=== PATIENT | female | born 1985 | race Caucasian/White ===

== ENCOUNTER → 2021-12-06 13:14 | Outpatient (ROUT) | payer OTHER, SELFPAY ==
[2021-12-06 13:23] LABS: Semen 30 min. Liquification? Yes
[2021-12-06 13:25] LABS: Final Volume 0.5 mL
== END ==
PROVIDERS: PCP Registered Nurse Diabetes Educator; Visit Provider Obstetrics & Gynecology
DX: Z31.69 Encounter for other general counseling and advice on procreation (principal)
CPT/HCPCS: 58323

== ENCOUNTER → 2022-01-31 10:39 | Outpatient (CLI) | payer OTHER, SELFPAY ==
[2022-01-31 12:25] LABS: Add Manual Diff / Slide Review NO; Basophils Absolute Auto 0 /uL (0-100); Basophils Percent Auto 0.4 % (0-2); Eosinophils Absolute Auto 100 /uL (0-450); Hematocrit 36.7 % (36-46); Hemoglobin 12.6 g/dL (12.0-16.0); Lymphocytes Absolute Auto 1700 /uL (1100-4500); Lymphocytes Percent Auto 22.2 % (25-40); Mean Corpuscular HGB Conc 34.2 % (30-36); Mean Corpuscular Volume 84.7 fL (80-100); Monocytes Absolute Auto 500 /uL (0-900); Monocytes Percent Auto 6.9 % (3-14); Neutrophils Absolute Auto 5400 /uL (1500-7000); Neutrophils Percent Auto 69.5 % (50-75); Platelet Count 210 X10^3/uL (150-400); Red Blood Cell Count 4.34 X10^6/uL (4.0-5.2); Red Cell Distribution Width 12.7 % (11.6-14.8); White Blood Cell Count 7.8 X10^3/uL (4.5-11.0)
[2022-01-31 12:52] LABS: Appearance Urine UA CLEAR; Bilirubin Urine UA NEGATIVE (NEGATIVE); Color Urine UA YELLOW; Glucose Urine UA NEGATIVE (Negative); Ketones Urine UA NEGATIVE (NEGATIVE); Leukocyte Esterase Urine UA NEGATIVE (NEGATIVE); Nitrite Urine UA NEGATIVE (Negative); Occult Blood Urine UA NEGATIVE (Negative); Protein Urine UA NEGATIVE (Negative); Specific Gravity Urine UA <=1.005 (1.000-1.035); Urobilinogen Urine UA 0.2 E.U./dL (0.2)
[2022-01-31 13:37] LABS: pH Urine UA 5.5 (4.5-8.0)
[2022-01-31 16:37] LABS: HIV 1 & 2 Ab/Ag 4th Gen Combo NEGATIVE (NEGATIVE); Hep C Virus Ab w/Reflex Quant NEGATIVE s/c (NEGATIVE); Hepatitis B Surface Antigen NEGATIVE s/c (NEGATIVE); Rubella Antibody IgG 10.8 IU/mL (>15)
[2022-02-01 07:17] LABS: Varicella IgG Antibody 650 index (Immune >165)
[2022-02-01 09:01] LABS: RPR Screen Non Reactive (Non Reactive)
== END ==
PROVIDERS: PCP Registered Nurse Diabetes Educator; Referring Provider Obstetrics & Gynecology; Visit Provider Obstetrics & Gynecology
DX: O09.511 Supervision of elderly primigravida, first trimester (principal)
CPT/HCPCS: 36415; 80055; 81003; 86787; 86803; 86850; 86900; 86901; 87086; 87389

== ENCOUNTER → 2022-03-20 10:00 | Outpatient (CLI) | payer OTHER, SELFPAY ==
[2022-03-20 14:53] LABS: Urine N gonorrhoeae NOT DETECTED
[2022-03-20 15:16] LABS: Urine Chlamydia NOT DETECTED
[2022-03-22 20:38] LABS: AFP Value 38.3 ng/mL (.); Insulin Dep Diabetes No (.); OSBR Risk 1IN 10000 (.); Results Report (.); Test Results *Screen Negative* (.)
[2022-03-25 14:38] LABS: PDF SEE PT SCANS
== END ==
PROVIDERS: PCP Registered Nurse Diabetes Educator; Referring Provider Obstetrics & Gynecology; Visit Provider Obstetrics & Gynecology
DX: Z34.82 Encounter for supervision of other normal pregnancy, second trimester (principal); Z3A.17 17 weeks gestation of pregnancy
CPT/HCPCS: 36415; 82105; 87491; 87591

== ENCOUNTER → 2022-04-25 12:16 | Outpatient (CLI) | payer OTHER, SELFPAY ==
--- NOTE | 2022-04-25 12:17 | DI.US.S_ITS ---
PROCEDURE: US OB >= 14 WEEKS FETUS INDICATIONS: 20 WEEKS ANATOMY SCAN OUTSIDE/PRIOR DATING DATA: Last menstrual period (LMP): 11/19/2021 LMP-based estimated date of delivery (DYLAN): 08/26/2022 First dating scan (date and location): 01/25/2022 Estimated date of delivery (DYLAN) from first dating scan: 08/26/2022 The calculations are made using the working DYLAN of 08/26/2022 TECHNIQUE: Real-time scanning was performed of the fetus, with image documentation and biometric measurements. Endovaginal scanning: Not performed COMPARISON: [facility], , US OB <= 14 WEEKS FETUS, 01/25/2022, 12:12. [facility], , US OB <= 14 WEEKS FETUS, 02/21/2022, 16:23. [facility], , US OB >= 14 WEEKS FETUS, 03/26/2022, 12:31. FINDINGS: General: A single living intrauterine gestation is present. Presentation: Breech Placenta: Placental position is posterior, without previa. Amniotic fluid index: 13.3 cm, normal range is 5-24 cm. Single deepest vertical pocket is 4.6 cm. heart rate: 158 beats per minute. Maternal cervical canal: 4.8 cm long. Normal lower limit is 2.5 cm. biometrics: Biparietal diameter: 5.3 cm, 22 weeks 0 days Head circumference: 19.5 cm, 21 weeks 5 days Abdominal circumference: 16.7 cm, 21 weeks 5 days Femur length: 3.6 cm, 21 weeks 4 days Clinically estimated gestational age: 22 weeks 3 days Composite gestational age from present scan: 21 weeks 5 days Estimated weight and percentile: 442 grams, 13th percentile Anatomic survey: Neuro: Ventricles are non-dilated at less than 10 mm. Cisterna magna is normal at 3-11 mm. Cerebellum is normal in size and morphology. Nuchal skin fold: Normal at less than 6 mm between 14-21 weeks gestational age. Face: Nose and lips, facial profile are normal. Spine: No evidence for spina bifida. Heart: 4-chambered heart is present, with normal ventricular outflow tracts. Diaphragm: Diaphragm is intact. Stomach: Left-sided stomach is present. Kidneys: No hydronephrosis. Normal is less than 5 mm in 2nd trimester, less than 7 mm in 3rd trimester. Cord: 3-vessel cord has orthotopic insertion. Bladder: Normal in size. Extremities: All 4 extremities identified. IMPRESSION: 1. Single live intrauterine with appropriate interval growth. 2. anatomic survey is within normal limits. We strive to produce accurate, complete, and clear reports of imaging services. To assist us in improving patient care, this report was composed using standard report templates and voice recognition software. Therefore, it may contain abnormal punctuation, insertions and/or omissions. Occasional wrong-word or sound-alike substitutions may occur. Though we review the report and make efforts to correct it, we do recommend that the report be read carefully in proper context to recognize any text inaccuracies. Approved by: Lane Cavazos M.D. on 04/25/2022 at 20:07
== END ==
PROVIDERS: PCP Registered Nurse Diabetes Educator; Referring Provider Obstetrics & Gynecology; Visit Provider Obstetrics & Gynecology
DX: Z34.92 Encounter for supervision of normal pregnancy, unspecified, second trimester (principal); Z3A.21 21 weeks gestation of pregnancy
CPT/HCPCS: 76811

== ENCOUNTER → 2022-05-23 09:36 | Outpatient (CLI) | payer OTHER, SELFPAY ==
[2022-05-23 12:28] LABS: Hemoglobin 11.4 g/dL (12.0-16.0)
[2022-05-23 12:56] LABS: GTT (PREG) 1 Hour PP 50gm Dose 76 mg/dL (76-139)
== END ==
PROVIDERS: PCP Registered Nurse Diabetes Educator; Referring Provider Obstetrics & Gynecology; Visit Provider Obstetrics & Gynecology
DX: Z34.82 Encounter for supervision of other normal pregnancy, second trimester (principal); Z3A.26 26 weeks gestation of pregnancy
CPT/HCPCS: 36415; 82950; 85014; 85018

== ENCOUNTER 2022-07-24 17:51 | Observation (INO) | payer OTHER, SELFPAY ==
[2022-07-24 17:56] VITALS: BP 132/90; PULSE 92; RESP 18; TEMP 37.1; O2SAT 100
[2022-07-24] MEDS: ONDANSETRON 4 MG/2 ML INJ IV (18:12)
[2022-07-24 18:28] LABS: Add Manual Diff / Slide Review NO; Basophils Absolute Auto 100 /uL (0-100); Basophils Percent Auto 0.4 % (0-2); Eosinophils Absolute Auto 100 /uL (0-450); Eosinophils Percent Auto 0.5 % (2-4); Hematocrit 37.9 % (36-46); Hemoglobin 12.7 g/dL (12.0-16.0); Lymphocytes Absolute Auto 2100 /uL (1100-4500); Lymphocytes Percent Auto 12.8 % (25-40); Mean Corpuscular HGB Conc 33.4 % (30-36); Mean Corpuscular Hemoglobin 28.9 PG (26-34); Mean Corpuscular Volume 86.6 fL (80-100); Monocytes Absolute Auto 700 /uL (0-900); Monocytes Percent Auto 4.6 % (3-14); Neutrophils Absolute Auto 13200 /uL (1500-7000); Neutrophils Percent Auto 81.7 % (50-75); Platelet Count 175 X10^3/uL (150-400); Red Blood Cell Count 4.38 X10^6/uL (4.0-5.2); White Blood Cell Count 16.1 X10^3/uL (4.5-11.0)
[2022-07-24] MEDS: SODIUM CHLORIDE 0.9% 1,000 ML 1000 ML IV (18:34)
[2022-07-24 18:35] LABS: Prothrombin Time 10.9 SECONDS (10.1-12.7)
[2022-07-24 18:37] LABS: PTT Partial Thromboplastin Tim 28 SECONDS (26-36)
[2022-07-24 18:45] LABS: Alanine Aminotransferase 25 IU/L (<35); Albumin 3.8 g/dL (3.5-5.0); Albumin Globulin Ratio 1.1 (1.0-2.8); Alkaline Phosphatase 159 U/L (38-126); Aspartate Aminotransferase 23 IU/L (14-36); BUN Creatinine Ratio 11.3 (6-22); Bilirubin Total 0.3 mg/dL (0.2-1.3); Blood Urea Nitrogen 6 mg/dL (7-17); Calcium 9.1 mg/dL (8.4-10.2); Carbon Dioxide 25 mmol/L (22-32); Chloride 103 mmol/L (98-107); Estimated Glomerular Filt Rate > 60 mL/min (>60); Globulin 3.5 g/dL (1.7-4.1); Glucose 85 mg/dL (70-100); HEMOLYSIS < 15 (0-50); Lipase 106 U/L (23-300); Potassium 3.7 mmol/L (3.4-5.1); Sodium 135 mmol/L (137-145); Total Protein 7.3 g/dL (6.3-8.2)
[2022-07-24 19:13] VITALS: BP 136/83; PULSE 77; RESP 16; O2SAT 100
--- NOTE | 2022-07-24 19:21 | ED.NAVMDI ---
HPI - Nausea/Vomiting/Diarrhea General Chief complaint: Nausea/Vomiting/Diarrhea Stated complaint: vomiting, dizzy, 35 weeks Time Seen by Provider: 07/24/22 18:07 Source: patient Mode of arrival: Ambulatory Limitations: no limitations History of Present Illness HPI Narrative: This is a 37-year-old with 1 prior miscarriage at 35 weeks who presents with some nausea vomiting and dizziness. Patient states started fairly abruptly earlier today. She is had occasional contractions for the past hour but not consistent. She besides contraction she denies any abdominal pain. Patient does not have any diarrhea constipation. No dysuria, urgency or frequency. She has not had any fevers or chills. Denies chest pain or shortness of breath. No headaches, no spots in her eyes. No right upper quadrant pain. No new swelling in her lower extremities. Patient states she is on omeprazole, no other daily medications. She is had prior pelvic surgery for an ovary and prior appendectomy. Patient states she is allergic to penicillin. No tobacco, alcohol or illicit. She is following with Dr. Cheryle Stewart is her industrial custodian. Related Data Home Medications Medication Instructions Recorded Confirmed cholecalciferol (vitamin D3) 125 125 mcg PO DAILY 01/08/22 07/17/22 mcg (5,000 unit) capsule lysine 1,000 mg tablet 1,000 mg PO DAILY 01/08/22 07/17/22 Previous Rx's Medication Instructions Recorded prenat.vits,zehra,ubj-ukzi-lyutk 1 tab PO DAILY #90 tabs 06/27/20 valacyclovir 500 mg tablet 500 mg PO BID #10 tabs 01/08/22 (Valtrex) ondansetron 4 mg disintegrating See Rx Instructions .Route 03/28/22 tablet .COMPLEX #20 tabs Double Electric Breast Pump 1 ea topical .prn #1 ea 07/17/22 pantoprazole 40 mg tablet,delayed 40 mg PO DAILY #30 tabs 07/17/22 release (Protonix) Allergies Allergy/AdvReac Type Severity Reaction Status Date / Time Penicillins Allergy Mild Rash Verified 07/17/22 09:27 alcohol AdvReac Severe Vomiting Verified 07/17/22 09:27 Review of Systems Review of Systems ROS Unobtainable: All systems reviewed & are unremarkable except as noted in HPI and below Patient History Medical History Anxiety HSV-1 (herpes simplex virus 1) infection Surgical History H/O pelvic surgery History of appendectomy [place] teeth extracted Family History Father Stroke Mother Bipolar disorder Grandmother Diabetes mellitus Granddaughter Lung cancer Family/Other Colon cancer Grandmother Heart attack Grandfather Heart attack Hypertension Family/Other Stroke Social History marital status: number of children: 1 household members: spouse and children lives independently: Yes caregiver/support person: Yes housing: house pets and animals: Yes (2 dogs, aware of toxo precautions) education level: college (edward's degree) 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) current occupational exposures/hazards: No special donnie needs: No travel history: recent (domestic only) seatbelt use: always helmet use: Yes water heater temp set < 120 deg: Yes working smoke detector in home: Yes fire extinguisher in home: Yes carbon monox detector in home: Yes firearms in home: Yes firearms unloaded and locked: Yes do you feel safe at home: Yes Smoking Status: Never smoker second hand exposure: No alcohol intake: former (Rarely when not ) substance use type: does not use during the past year weight has: remained stable daily servings fruits/ve or more times/day caffeine: Yes (Decaf since ) Type(s) of exercise: walking frequency: daily Smoking Status: Never smoker Exam Narrative Exam Narrative: GENERAL: Alert and oriented x three, female in mild distress. HEENT: Head normocephalic, atraumatic, EOMI, pupils reactive, face symmetric, moist mucous membranes NECK: Supple, full range of motion CARDIOVASCULAR: Regular rate and rhythm without murmurs, rubs or gallops. RESPIRATORY: Breath sounds equal bilaterally, no wheezes rales or rhonchi. ABDOMEN: Soft, nontender. Gravid. Normoactive bowel sounds all 4 quadrants. No guarding or rebound, rigidity, no mass : No CVA tenderness EXTREMITIES: Normal range of motion, no clubbing or edema. Neurovascularly intact. Brisk bilateral patellar DTRs. Not present upper extremity. NEUROLOGICAL: Cranial nerves II through XII grossly intact. Moving all extremities SKIN: Warm, dry, no petechiae, no rashes or lesions. Initial Vital Signs Initial Vital Signs: Vital Signs Temperature 98.7 F 07/24/22 17:56 Pulse Rate 92 H 07/24/22 17:56 Respiratory Rate 18 07/24/22 17:56 Blood Pressure 132/90 07/24/22 17:56 Pulse Oximetry 100 07/24/22 17:56 Oxygen Delivery Method Room Air 07/24/22 17:56 Course Orders Ordered: Discontinued Medications Sodium Chloride (Normal Saline 0.9%) 1,000 mls @ 1,000 mls/hr IV BOLUS ONE Stop: 07/24/22 19:07 Last Infusion: 07/24/22 19:27 Dose: 0 mls/hr Documented By: Admin: 07/24/22 18:34 Dose: 1,000 mls/hr Documented By: DANIAL Lactated Ringer's (Lactated Ringers) 1,000 mls @ 1,000 mls/hr IV BOLUS ONE Stop: 07/24/22 23:04 Last Admin: 07/24/22 20:30 Dose: 1,000 mls/hr Documented By: NOA Lactated Ringer's (Lactated Ringers) 1,000 mls @ 1,000 mls/hr IV BOLUS ONE Stop: 07/24/22 23:04 Last Admin: 07/24/22 21:15 Dose: 1,000 mls/hr Documented By: NOA Ondansetron HCl (Ondansetron 4 Mg/2 Ml Inj) 4 mg IV NOW ONE Stop: 07/24/22 18:08 Last Admin: 07/24/22 18:12 Dose: 4 mg Documented By: GUIDO Ondansetron HCl (Ondansetron 4 Mg Odt) 4 mg SL NOW PRN PRN Reason: Nausea And Vomiting Ondansetron HCl (Ondansetron 4 Mg/2 Ml Inj) 4 mg IV NOW PRN PRN Reason: Nausea And Vomiting Vital Signs Vital signs: Vital Signs - 8 hr 07/24/22 17:56 07/24/22 19:13 Temperature 98.7 F Pulse Rate 92 H 77 Respiratory Rate 18 16 Blood Pressure 132/90 136/83 Pulse Oximetry 100 100 Oxygen Delivery Method Room Air Room Air MDM - Nausea/Vomiting/Diarrhea Lab Data 07/24/22 18:05 07/24/22 18:05 Labs: Lab Results 07/24/22 07/24/22 07/24/22 Range/Units 18:05 18:05 18:05 WBC 16.1 H (4.5-11.0) X10^3/uL RBC 4.38 (4.0-5.2) X10^6/uL Hgb 12.7 (12.0-16.0) g/dL Hct 37.9 (36-46) % MCV 86.6 (80-100) fL MCH 28.9 (26-34) PG MCHC 33.4 (30-36) % RDW 13.0 (11.6-14.8) % Plt Count 175 (150-400) X10^3/uL Neut % (Auto) 81.7 H (50-75) % Lymph % (Auto) 12.8 L (25-40) % [place] % (Auto) 4.6 (3-14) % Eos % (Auto) 0.5 L (2-4) % Baso % (Auto) 0.4 (0-2) % Neut # (Auto) 01595 H (6614-4248) /uL Lymph # (Auto) 2100 (7668-5789) /uL [place] # (Auto) 700 (0-900) /uL Eos # (Auto) 100 (0-450) /uL Baso # (Auto) 100 (0-100) /uL PT 10.9 (10.1-12.7) SECONDS INR 1.0 (0.9-1.3) APTT 28 (26-36) SECONDS Sodium 135 L (137-145) mmol/L Potassium 3.7 (3.4-5.1) mmol/L Chloride 103 (98-107) mmol/L Carbon Dioxide 25 (22-32) mmol/L BUN 6 L (7-17) mg/dL Creatinine 0.53 (0.52-1.04) mg/dL Estimated GFR > 60 (>60) mL/min BUN/Creatinine Ratio 11.3 (6-22) Glucose 85 (70-100) mg/dL Calcium 9.1 (8.4-10.2) mg/dL Total Bilirubin 0.3 (0.2-1.3) mg/dL AST 23 (14-36) IU/L ALT 25 (<35) IU/L Alkaline Phosphatase 159 H (38-126) U/L Total Protein 7.3 (6.3-8.2) g/dL Albumin 3.8 (3.5-5.0) g/dL Globulin 3.5 (1.7-4.1) g/dL Albumin/Globulin Ratio 1.1 (1.0-2.8) Lipase 106 (23-300) U/L U Random Total Protein (0-12) mg/dL Urine Creatinine mg/dL Protein/Creatinin Ratio GRAM/24H 07/24/22 Range/Units 18:05 WBC (4.5-11.0) X10^3/uL RBC (4.0-5.2) X10^6/uL Hgb (12.0-16.0) g/dL Hct (36-46) % MCV (80-100) fL MCH (26-34) PG MCHC (30-36) % RDW (11.6-14.8) % Plt Count (150-400) X10^3/uL Neut % (Auto) (50-75) % Lymph % (Auto) (25-40) % [place] % (Auto) (3-14) % Eos % (Auto) (2-4) % Baso % (Auto) (0-2) % Neut # (Auto) (8582-0111) /uL Lymph # (Auto) (1874-9731) /uL [place] # (Auto) (0-900) /uL Eos # (Auto) (0-450) /uL Baso # (Auto) (0-100) /uL PT (10.1-12.7) SECONDS INR (0.9-1.3) APTT (26-36) SECONDS Sodium (137-145) mmol/L Potassium (3.4-5.1) mmol/L Chloride (98-107) mmol/L Carbon Dioxide (22-32) mmol/L BUN (7-17) mg/dL Creatinine (0.52-1.04) mg/dL Estimated GFR (>60) mL/min BUN/Creatinine Ratio (6-22) Glucose (70-100) mg/dL Calcium (8.4-10.2) mg/dL Total Bilirubin (0.2-1.3) mg/dL AST (14-36) IU/L ALT (<35) IU/L Alkaline Phosphatase (38-126) U/L Total Protein (6.3-8.2) g/dL Albumin (3.5-5.0) g/dL Globulin (1.7-4.1) g/dL Albumin/Globulin Ratio (1.0-2.8) Lipase (23-300) U/L U Random Total Protein 7 (0-12) mg/dL Urine Creatinine 119.6 mg/dL Protein/Creatinin Ratio 0.05 GRAM/24H Urine Dip Bedside Urine Glucose Negative Bedside Urine Bilirubin - Negative Bedside Urine Ketone + 15 Urine Specific [place] 1.010 Bedside Urine Occult Blood - Negative Bedside Urine pH 7.5 Bedside Urine Protein - Negative Bedside Urine Urobilinogen - Negative Bedside Urine Nitrite - Negative Bedside Urine Leukocytes - Negative Esterase MDM Narrative Medical decision making narrative: This is a 37-year-old female who is A1 who presents with dizziness nausea vomiting and intermittent contractions. NST shows Q3 minutes contractions. Patient's labs show leukocytosis but otherwise normal LFTs, creatinine electrolytes. Patient is little elevated blood pressure in the 130s to 140 range on arrival. Receiving a L fluids, antinausea medication spoke with the stock holder Yelena and plan to transfer to the L and D department for further monitoring and treatment. Discharge Plan Departure Patient Disposition: Admitted as Observation Clinical Impression: Vomiting, Uterine contractions during Admit Date/Time: 07/24/22 19:26 Admit Provider: Yelena Charles
[2022-07-24 20:18] LABS: Creatinine Urine Random 119.6 mg/dL; Protein (Total) Urine Random 7 mg/dL (0-12); Protein Creatinine Ratio Urine 0.05 GRAM/24H
[2022-07-24] MEDS: LACTATED RINGERS 1,000 ML 1000 ML IV ×2 (20:30→21:15)
--- NOTE | 2022-07-24 21:03 | P.TNLD_ITS ---
Visit Information Visit Information Date of evaluation: 07/24/22 Primary OB Provider: Radha Stewart On-call OB Provider: Yelena Charles Reason for Evaluation: Yes rule out labor Comments/Additional reasons for admission: 37YO @ [id number] referred from ER by after treatment of nausea and vomiting for evaluation of contractions and elevated BP. Nausea, vomiting and dizziness today and was sent to ER for IV fluids. While there, contractions and mild hypertension (systolic 130-140/diastolic 80-90) were noted. +FM. No vaginal bleeding or leaking of fluid. Vital Signs Vital Signs: Vital Signs - 8 hr 07/24/22 18:58 07/24/22 19:13 Temperature 36.8 C Pulse Rate 71 87 Respiratory Rate Blood Pressure 138/79 123/73 Pulse Oximetry Oxygen Delivery Method Room Air Room Air [facility] Medical History Anxiety HSV-1 (herpes simplex virus 1) infection Surgical History H/O pelvic surgery History of appendectomy [place] teeth extracted Family History Father Stroke Mother Bipolar disorder Grandmother Diabetes mellitus Granddaughter Lung cancer Family/Other Colon cancer Grandmother Heart attack Grandfather Heart attack Hypertension Family/Other Stroke Social History marital status: number of children: 1 household members: spouse and children lives independently: Yes caregiver/support person: Yes housing: house pets and animals: Yes (2 dogs, aware of toxo precautions) education level: college (edward's degree) 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) current occupational exposures/hazards: No special donnie needs: No travel history: recent (domestic only) seatbelt use: always helmet use: Yes water heater temp set < 120 deg: Yes working smoke detector in home: Yes fire extinguisher in home: Yes carbon monox detector in home: Yes firearms in home: Yes firearms unloaded and locked: Yes do you feel safe at home: Yes Smoking Status: Never smoker second hand exposure: No alcohol intake: former (Rarely when not ) substance use type: does not use during the past year weight has: remained stable daily servings fruits/ve or more times/day caffeine: Yes (Decaf since ) Type(s) of exercise: walking frequency: daily Exam Vital Signs (past 8 hours): - see above Presentation: vertex Objective Labs 07/24/22 18:05 07/24/22 18:05 Labs: Laboratory Results - last 24 hr 07/24/22 07/24/22 07/24/22 18:05 18:05 18:05 WBC 16.1 H RBC 4.38 Hgb 12.7 Hct 37.9 MCV 86.6 MCH 28.9 MCHC 33.4 RDW 13.0 Plt Count 175 Neut % (Auto) 81.7 H Lymph % (Auto) 12.8 L [place] % (Auto) 4.6 Eos % (Auto) 0.5 L Baso % (Auto) 0.4 Neut # (Auto) 47547 H Lymph # (Auto) 2100 [place] # (Auto) 700 Eos # (Auto) 100 Baso # (Auto) 100 PT 10.9 INR 1.0 APTT 28 Sodium 135 L Potassium 3.7 Chloride 103 Carbon Dioxide 25 BUN 6 L Creatinine 0.53 Estimated GFR > 60 BUN/Creatinine Ratio 11.3 Glucose 85 Calcium 9.1 Total Bilirubin 0.3 AST 23 ALT 25 Alkaline Phosphatase 159 H Total Protein 7.3 Albumin 3.8 Globulin 3.5 Albumin/Globulin Ratio 1.1 Lipase 106 U Random Total Protein Urine Creatinine Protein/Creatinin Ratio 07/24/22 18:05 WBC RBC Hgb Hct MCV MCH MCHC RDW Plt Count Neut % (Auto) Lymph % (Auto) [place] % (Auto) Eos % (Auto) Baso % (Auto) Neut # (Auto) Lymph # (Auto) [place] # (Auto) Eos # (Auto) Baso # (Auto) PT INR APTT Sodium Potassium Chloride Carbon Dioxide BUN Creatinine Estimated GFR BUN/Creatinine Ratio Glucose Calcium Total Bilirubin AST ALT Alkaline Phosphatase Total Protein Albumin Globulin Albumin/Globulin Ratio Lipase U Random Total Protein 7 Urine Creatinine 119.6 Protein/Creatinin Ratio 0.05 Evaluation Evaluation Baseline heart rate: 130 Variability: Moderate (11-25) monitor accelerations: Present Monitor Decelerations: Absent Category of Tracing: Reactive Comments: Irregular, mild contractions Q2-12 minutes CE by RN 1cm, soft, posterior, ballotable Diagnosis, Plan/Disposition Final Diagnosis (1) Uterine contractions during : Status: Acute Problem details: mild, not in labor (2) Dehydration during : Status: Acute Problem details: urine appeared tori and patient did not void after 1 L LR in ER. An additional 1L LR was given during triage and patient states cramping has eased. (3) Elevated blood pressure reading without diagnosis of hypertension: Status: Acute Problem details: normotensive with negative preeclampsia panel Plan/Disposition Plan: Discharge to home with routine precautions. Recommend rest and hydration. Follow-up with as previously scheduled. OB Disposition: home
[2022-07-24 21:44] LABS: Strep Grp B PCR NEG for Grp B Strep
== END 2022-07-24 22:00 | disposition home or self-care (01) ==
LOC: ED 19:21 → LABOR 19:27
PROVIDERS: Admitting Provider Nurse Practitioner Obstetrics & Gynecology; Emergency Provider Emergency Medicine; PCP Registered Nurse Diabetes Educator; Referring Provider Obstetrics & Gynecology; Visit Provider Nurse Practitioner Obstetrics & Gynecology
DX: O47.03 False labor before 37 completed weeks of gestation, third trimester (principal); O26.893 Other specified pregnancy related conditions, third trimester; O21.9 Vomiting of pregnancy, unspecified; R03.0 Elevated blood-pressure reading, without diagnosis of hypertension; E86.0 Dehydration; Z3A.35 35 weeks gestation of pregnancy
CPT/HCPCS: 36415; 59025; 59050; 80053; 81003; 82570; 83690; 84156; 85025; 85610; 85730; 87081; 87653; 96360; 96361; 96374; 99284; G0378; J2405

== ENCOUNTER 2022-07-29 10:27 | Inpatient (IN) | payer OTHER, SELFPAY ==
[2022-07-29 10:51] LABS: Appearance Urine UA CLEAR; Bilirubin Urine UA NEGATIVE (NEGATIVE); Color Urine UA YELLOW; Glucose Urine UA NEGATIVE (Negative); Ketones Urine UA NEGATIVE (NEGATIVE); Leukocyte Esterase Urine UA TRACE (NEGATIVE); Nitrite Urine UA NEGATIVE (Negative); Occult Blood Urine UA TRACE-INTACT (Negative); Protein Urine UA NEGATIVE (Negative); Specific Gravity Urine UA <=1.005 (1.000-1.035); Urobilinogen Urine UA 0.2 E.U./dL (0.2)
[2022-07-29 10:59] LABS: Bacteria Urine Occasional (0-1); Culture Indicated Urine Cult Not Indicated; RBC Urine None Seen (0-5/HPF); Squamous Epithelial Cell Urine None Seen (0-5/HPF); WBC Urine 0-1/HPF (0-5/HPF)
[2022-07-29] MEDS: NIFEdipine 10 MG CAPSULE PO ×4 (11:42→12:43)
[2022-07-29] MEDS: TERBUTALINE 1 MG/ML VIAL 0.25 MG SUBCUT (14:44)
[2022-07-29 14:46] LABS: Fetal Fibronectin Positive
[2022-07-29] MEDS: ACETAMINOPHEN 325 MG TABLET 975 MG PO (17:09)
[2022-07-29 18:05] LABS: Add Manual Diff / Slide Review NO; Basophils Absolute Auto 0 /uL (0-100); Basophils Percent Auto 0.3 % (0-2); Eosinophils Absolute Auto 0 /uL (0-450); Eosinophils Percent Auto 0.2 % (2-4); Hematocrit 38.4 % (36-46); Hemoglobin 12.9 g/dL (12.0-16.0); Lymphocytes Absolute Auto 1500 /uL (1100-4500); Lymphocytes Percent Auto 9.4 % (25-40); Mean Corpuscular HGB Conc 33.5 % (30-36); Mean Corpuscular Hemoglobin 28.7 PG (26-34); Mean Corpuscular Volume 85.6 fL (80-100); Monocytes Absolute Auto 800 /uL (0-900); Monocytes Percent Auto 4.9 % (3-14); Neutrophils Absolute Auto 13400 /uL (1500-7000); Neutrophils Percent Auto 85.2 % (50-75); Platelet Count 171 X10^3/uL (150-400); Red Blood Cell Count 4.48 X10^6/uL (4.0-5.2); Red Cell Distribution Width 13.4 % (11.6-14.8); White Blood Cell Count 15.7 X10^3/uL (4.5-11.0)
[2022-07-29 21:08] VITALS: BP 130/76
[2022-07-29] MEDS: MORPHINE 10 MG/ML INJ 8 MG IM (22:30)
[2022-07-30] MEDS: ONDANSETRON 4 MG ODT SL (02:23)
[2022-07-30] MEDS: fentaNYL 100 MCG/2 ML INJ 50 MCG IV (06:50)
[2022-07-30] MEDS: ONDANSETRON 4 MG/2 ML INJ IV (08:06)
--- NOTE | 2022-07-30 08:47 | P.PCN_ITS ---
[facility] Pre-procedure Procedure: Continuous Lumbar Epidural for L&D Attending OB provider: Radha Stewart PMH/ROS narrative: @ 35+3 with SROM. No complications with . PMH/PSH appy, pelvic surgery ASA Class: II Labs: Hct 38.4 % (36-46) 07/29/22 17:35 Plt Count 171 X10^3/uL (150-400) 07/29/22 17:35 Medications: Current Medications Generic Name Dose Route Start Last Admin Trade Name Freq PRN Reason Stop Dose Admin Calcium Carbonate 1,000 mg 07/29/22 17:18 Calcium Carbonate 500 Mg Tab PO Q4HR PRN Dyspepsia Carboprost Tromethamine 250 mcg 07/29/22 17:18 Carboprost 250 Mcg/Ml Ampul IM Q90M PRN Bleeding Diphenhydramine HCl 25 mg 07/30/22 07:44 Diphenhydramine 50 Mg/Ml Vial IV Q10M PRN Pruritis Fentanyl 50 mcg 07/29/22 17:18 07/30/22 06:50 Fentanyl 100 Mcg/2 Ml Inj IV 50 mcg Q1H PRN Administration Pain, Moderate (4-6) Lactated Ringer's 1,000 mls @ 100 mls/hr 07/29/22 17:30 Lactated Ringers IV CONT CACHORRO Oxytocin/Lactated Ringer's 30 unit in 500 mls @ 200 mls/hr 07/29/22 17:18 Oxytocin Premix IV CONT PRN Bleeding Protocol Tranexamic Acid 1,000 mg/ 100 mls @ 200 mls/hr 07/29/22 17:18 Sodium Chloride IV NOW PRN Bleeding FENT 2MCG/ML BUPIV 0.125% EPI 200 mcg in 100 mls @ 6 mls/hr 07/30/22 07:45 Fentanyl/Bupiv/Ns 2mcg/Ml - 0.125% EPIDURAL CONT CACHORRO Lidocaine HCl 20 ml 07/29/22 17:18 Lidocaine 1% 20 Ml INJ INTRA-OP PRN Post Delivery Methylergonovine Maleate 0.2 mg 07/29/22 17:18 Methylergonovine 0.2 Mg Tablet PO Q6HR PRN Heavy Bleeding Methylergonovine Maleate 0.2 mg 07/29/22 17:18 Methylergonovine 0.2 Mg/Ml Vial IM NOW PRN Bleeding Misoprostol 800 mcg 07/29/22 17:18 Misoprostol 200 Mcg Tablet NV NOW PRN Bleeding Misoprostol 400 mcg 07/29/22 17:18 Misoprostol 200 Mcg Tablet SL NOW PRN Bleeding Nalbuphine HCl 2.5 mg 07/30/22 07:44 Nalbuphine 20 Mg/Ml Ampul IV Q10M PRN Pruritis Naloxone HCl 0.2 mg 07/29/22 17:18 Naloxone 0.4 Mg/Ml Vial IV Q2MIN PRN Opiate Reversal Ondansetron HCl 4 mg 07/29/22 17:18 07/30/22 08:06 Ondansetron 4 Mg/2 Ml Inj IV 4 mg Q4HR PRN Administration Nausea And Vomiting Ondansetron HCl 4 mg 07/30/22 02:08 07/30/22 02:23 Ondansetron 4 Mg Odt SL 4 mg Q4HR PRN Administration Nausea Oxytocin 10 unit 07/29/22 17:18 Oxytocin 10 Unit/Ml Vial IM NOW PRN Bleeding Allergies: Allergies Allergy/AdvReac Type Severity Reaction Status Date / Time Penicillins Allergy Mild Rash Verified 07/17/22 09:27 alcohol AdvReac Severe Vomiting Verified 07/17/22 09:27 Procedure Insertion date: 07/30/22 Insertion time: 07:50 Prep/Local: betadine x3 and 1% lidocaine Interspace: L3-4 Patient position: sitting Needle: 18 gauge Leandro Loss of resistance with: saline DL at (cm): 5 Catheter placed at SKIN (cm): 10 Catheter in SPACE (cm): 5 Insertion: No CSF, No Blood, No Paresthesia with insertion, No Paresthesia with injection and No Test dose reaction Initial Medications TEST DOSE time: 07:50 TEST DOSE: 1.5% lidocaine with epinephrine 1:200k (mL): 3 BOLUS DOSE time: 07:53 BOLUS DOSE (mL): 5 BOLUS DOSE med: 0.25% bupivacaine Infusion INFUSION: 0.125% bupivacaine and with fentanyl 2 mcg/mL Initial rate (mL/hr): 8 Subsequent interventions: PCEA@8+4 1900: 10mL 0.25% bupiv, 100mcg fentanyl bolus, rate to 12mL/h 2020: , NRP with compressions needed, good response, transferred to routine care per construction administrative assistant Post-procedure Anesthesia time START: 07:43 Anesthesia time END: 20:25 Post-procedure Anesthesia Assessment: Yes CV function: HR/BP stable, Yes Resp function: RR/sat/airway adequate, Yes Post-op hydration adequate, Yes Pain control adequate, Yes Nausea & vomiting absent, Yes Temperature > 36 C, Yes Mental status appropriate and No Anesthesia complications
[2022-07-30] MEDS: LACTATED RINGERS 1,000 ML 100 ML IV (09:45)
[2022-07-30] MEDS: FENT 2MCG/ML BUPIV 0.125% EPI 200 MCG/100 ML PLAST..BAG 6 MCG EPIDURAL ×2 (09:46→11:40)
[2022-07-30] MEDS: diphenhydrAMINE 50 MG/ML VIAL 25 MG IV (14:31)
[2022-07-30] MEDS: OXYTOCIN PREMIX 30 UNIT/500 ML PLAST..BAG IV (18:04)
--- NOTE | 2022-07-30 21:52 | PM.OBHP.IH.1 ---
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 A decision was made to keep the patient and observe overnight. The contractions initially spaced out after IV morphine. Patient then slept for several hours. She awoke with frequent contractions again and progressed in labor with spontaneous rupture of membranes. She received an epidural for pain management. care: good care, initiated at week # (9), number of visits (9) and pounds weight gain (40) Dating criteria OB: LMP confirmed by 1st trimester US Ultrasounds: normal 1st trimester US and normal mid trimester US Obstetrical complications: labor Medical complications OB: none Preadmission Labs Last OB Lab Results: Blood Type O Positive 07/29/22 17:35 Antibody Screen Negative 07/29/22 17:35 Hematocrit 38.4 % (36-46) 07/29/22 17:35 Hemoglobin 12.9 g/dL (12.0-16.0) 07/29/22 17:35 Hepatitis B Surface Antigen Negative s/c (NEGATIVE) 01/31/22 11:16 Hepatitis C Antibody Negative s/c (NEGATIVE) 01/31/22 11:16 Rubella Antibody 10.8 IU/mL (>15) L 01/31/22 11:16 Varicella-Zoster IgG Antibody 650 index (Immune >165) 01/31/22 11:16 Glucose 1 Hour 76 mg/dL (76-139) 05/23/22 10:03 Group B Streptococcus (PCR) Neg for grp b strep 07/24/22 20:15 -: Chlamydia screen: negative, Gonorrhea screen: negative and Urine: negative -: PAP smear: Normal Genetic Screens: Cell-free DNA: Normal and Alpha-fetoprotein: Normal External Labs -: Urine: negative Prior (ies) Past Pregnancies Del. Date GA/Weeks Labor Lgth Wt Sex Route Outcome Anesthesia Place Delv Breastfeed Preg Comp Name 01/19/19 42 4 7 lb 13 oz Male vaginal live - full term [facility] 1 year post-dates induction shoulder dystocia Benjamin Evaluation Evaluation Baseline heart rate: 135 Variability: Moderate (11-25) monitor accelerations: Present Monitor Decelerations: Absent Contraction Frequency (minutes): 3 Uterine Contraction Intensity: Moderate Status: Category l Dilation (cm): 5 Effacement (%): 85 station: -1 Position of cervix: mid Consistency: medium PFSH Medical History Anxiety HSV-1 (herpes simplex virus 1) infection Surgical History H/O pelvic surgery History of appendectomy [place] teeth extracted Family History Father Stroke Mother Bipolar disorder Grandmother Diabetes mellitus Granddaughter Lung cancer Family/Other Colon cancer Grandmother Heart attack Grandfather Heart attack Hypertension Family/Other Stroke Social History marital status: number of children: 1 household members: spouse and children lives independently: Yes caregiver/support person: Yes housing: house pets and animals: Yes (2 dogs, aware of toxo precautions) education level: college (edward's degree) 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) current occupational exposures/hazards: No special donnie needs: No travel history: recent (domestic only) seatbelt use: always helmet use: Yes water heater temp set < 120 deg: Yes working smoke detector in home: Yes fire extinguisher in home: Yes carbon monox detector in home: Yes firearms in home: Yes firearms unloaded and locked: Yes do you feel safe at home: Yes Smoking Status: Never smoker second hand exposure: No alcohol intake: former (Rarely when not ) substance use type: does not use during the past year weight has: remained stable daily servings fruits/ve or more times/day caffeine: Yes (Decaf since ) Type(s) of exercise: walking frequency: daily Meds Home Medications and Allergies Home Medications Medication Instructions Recorded Confirmed Type prenat.vits,zehra,vef-vzmy-jefse 1 tab PO DAILY #90 tabs 06/27/20 07/17/22 Rx cholecalciferol (vitamin D3) 125 125 mcg PO DAILY 01/08/22 07/17/22 History mcg (5,000 unit) capsule lysine 1,000 mg tablet 1,000 mg PO DAILY 01/08/22 07/17/22 History valacyclovir 500 mg tablet 500 mg PO BID #10 tabs 01/08/22 07/17/22 Rx (Valtrex) ondansetron 4 mg disintegrating See Rx Instructions .Route 03/28/22 07/17/22 Rx tablet .COMPLEX #20 tabs Double Electric Breast Pump 1 ea topical .prn #1 ea 07/17/22 07/17/22 Rx pantoprazole 40 mg tablet,delayed 40 mg PO DAILY #30 tabs 07/17/22 07/17/22 Rx release (Protonix) Allergies Allergy/AdvReac Type Severity Reaction Status Date / Time Penicillins Allergy Mild Rash Verified 07/17/22 09:27 alcohol AdvReac Severe Vomiting Verified 07/17/22 09:27 OB Exam Narrative Exam Narrative: Generally: Patient comfortable with epidural Fundal height: 36 cm Estimated weight: 6 lb Extremities: No edema Objective Labs 07/29/22 17:35 Assessment and Plan Assessment and Plan Assessment and Plan narrative: Assessment: 37-year-old 3 para 1 at 35-,6/7 weeks gestation with labor Status post spontaneous rupture of membranes Comfortable with epidural GBS negative Plan: Pitocin as needed Expected management to spontaneous vaginal delivery Pediatrics notified Time Spent with Patient Total time spent with greater than 50% in coordination of care (as documented) at patient's floor/unit and/or counseling patient:: 15-24 minutes
--- NOTE | 2022-07-30 21:57 | PM.OBPNLAB ---
Date/Time Date Patient Seen: 07/30/22 Time Patient Seen: 17:30 Pain Control Pain control: epidural Pelvic Exam Dilation (cm): 8 Effacement (%): 90 station: 0 Amniotic membrane status: Ruptured Contractions Contractions on admission: regular Monitor mode: External Contraction frequency (min): 3 Contraction duration (min): 1 Contraction pattern: Regular Contraction intensity: Strong/Firm Status status: Category l Heart Rate Baseline: 135 Monitor Accelerations: Present Monitor Decelerations: Absent Monitor Variability: Moderate Assessment and Plan Assessment: active labor Comments: Side to side until remainder of cervix is gone Once complete may begin pushing Pitocin augmentation as needed
--- NOTE | 2022-07-30 21:59 | PM.OBPRVD ---
Events: Labor < 37 wks Labor & Delivery Delivery date: 07/30/22 Cervical ripening method: none Induction method: none Delivery monitor: external FHT and external uterine Route of delivery: Episiotomy description: None L&D Laceration Description: None Quantitative Blood Loss: 300 Anesthesia Type: Epidural Complications: None Narrative: Patient complete and pushed for 50 minutes. At 8:15 p.m., a live male delivered spontaneously over an intact perineum in the SHARMILA presentation, over an intact perineum. No nuchal cord. The remainder of the body delivered without difficulty and was placed on mom's abdomen. There was a large gush of blood with delivery of the baby. The cord was immediately double clamped and cut and the infant was taken to the warmer. A piece of cord for cord pH was obtained. Pitocin was given in the IV fluids at a rate of 220 cc/hour. Fundus was massaged to firm. The placenta delivered at 8:24p.m.. There was an area on the edge of the placenta with large clots. There was a three-vessel cord. The perineum was inspected and there were no lacerations. . Mom stable to recovery Baby 1: Infant gender: Male Presentation: vertex Position: Right Occiput Anterior Placenta delivery description: Spontaneous Cord Vessel Description: 3 Vessels score (1 min): 2 score (5 min): 1 score (10 min): 3 weight: 5 lb 5 oz Plan for aftercare: Routine care
[2022-07-31] MEDS: ACETAMINOPHEN 325 MG TABLET 650 MG PO ×2 (03:54→15:01)
[2022-07-31] MEDS: IBUPROFEN 600 MG TABLET PO ×3 (03:56→20:09)
[2022-07-31 06:41] LABS: Hematocrit 33.7 % (36-46); Hemoglobin 11.5 g/dL (12.0-16.0)
[2022-07-31] MEDS: DOCUSATE 100 MG CAPSULE PO (09:19)
[2022-07-31] MEDS: PRENATAL VIT,CALC/IRON/FOLIC 1 TABLET 1 TAB PO (09:19)
--- NOTE | 2022-07-31 17:21 | PM.OBPN.1 ---
Subjective - OB Subjective Patient comments: no complaints and pain well controlled [place] baby status: doing well and other (Putting baby to breast, pumping and giving colostrum in syringe) [place] feeding status: exclusively breast feeding Date Patient Seen: 07/31/22 Time Patient Seen: 17:22 Interval history: day # 1 status post spontaneous vaginal delivery with probable abruption. Bleeding is minimal. No cramping. Patient is putting baby to breast and pumping and giving colostrum in a syringe. Baby required resuscitation. Exam Narrative Exam Narrative: Generally: Patient lying in bed, holding infant, no acute distress Fundus: Firm at U -2 Extremities: No edema, negative Homans Objective Labs 07/31/22 06:31 Labs: Laboratory Results - last 24 hr 07/31/22 06:31 Hgb 11.5 L Hct 33.7 L Assessment & Plan Plan day: 1 plan OB: routine care Time Spent With Patient Time: Total time spent is greater than 50% in coordination of care (as documented) at patient's floor/unit and/or counseling patient: Time with patient: 15-24 minutes
[2022-07-31] MEDS: valACYclovir 500 MG TABLET PO (20:09)
[2022-08-01] MEDS: ACETAMINOPHEN 325 MG TABLET 650 MG PO (01:47)
[2022-08-01] MEDS: valACYclovir 500 MG TABLET PO (08:52)
[2022-08-01] MEDS: PRENATAL VIT,CALC/IRON/FOLIC 1 TABLET 1 TAB PO (08:52)
[2022-08-01] MEDS: DOCUSATE 100 MG CAPSULE PO (08:52)
[2022-08-01] MEDS: IBUPROFEN 600 MG TABLET PO (10:56)
--- NOTE | 2022-08-10 18:39 | P.DS_ITS ---
Discharge Providers Provider Date of admission: 07/29/22 10:27 Discharge Date: 08/01/22 Primary care physician: JOHANNY Mercado Consults: 07/29/22 17:18 Consult to Anesthesiology Urgent Comment: Consulting Provider: Anesthesiologist Reason for consultation: Epidural Has provider been notified: Yes 07/31/22 22:39 Consult to Geoscience Professor Routine Comment: Discharge provider: Radha Stewart MD Summary Hospital Course Date Patient Seen: 08/01/22 Time Patient Seen: 12:30 Diagnoses: 35-6/7 weeks gestation labor Spontaneous rupture of membranes Placental abruption Spontaneous vaginal delivery Hospital Course: Patient is a 37-year-old 3 para 1 who presented on July 29, 2022 with contractions. She was having significant discomfort. A decision was made to keep her overnight and observed. She received IV morphine. Initially the contractions subsided. Overnight, the contractions picked up again and she had a spontaneous rupture of membranes. She received an epidural for pain management. She progressed in active labor and had a spontaneous vaginal delivery at 8:15 p.m.. There was found to be a partial abruption on the placenta. Mom had no lacerations and had an uncomplicated course. Baby underwent resuscitation. Mom's course was unremarkable. She was discharged home with baby on August 01, 2022. Peripartum Data Infant Delivery Method: Natural Vaginal Laceration Description: None Episiotomy description: None Procedures: Epidural analgesia Spontaneous vaginal delivery complications: none [place] 1: Gender: Male Disposition of : home Status at Discharge Cognitive/behavioral status at discharge: oriented Functional status at discharge: independent ambulation Overall status at discharge: patient is progressing back to baseline Time Spent with Patient Time attestation: Total time spent providing and/or coordinating discharge services: Time spent: Less than 30 minutes Objective Labs 07/31/22 06:31 Exam Narrative Exam Narrative: Generally: Patient is sitting up in bed, holding , no acute distress Fundus: Firm at U -2 Extremities: No edema, negative Homans Discharge Plan Discharge Plan Patient Disposition: Home Provider Discharge Comment: Call with fever, chills, or bleeding vaginally more than a pad in an hour Ibuprofen 600 mg every 6 hours as needed for cramping Push oral fluids Continue vitamins Discharge orders & Medications Prescriptions: Continued prenat.vits,zehra,mxb-qiix-ablao Tablet 1 tab PO DAILY Qty: 90 3RF cholecalciferol (vitamin D3) 125 mcg (5,000 unit) capsule 125 mcg PO DAILY lysine 1,000 mg tablet 1,000 mg PO DAILY Double Electric Breast Pump 1 ea topical .prn Qty: 1 0RF Rx Instructions: Pump with supplies Discontinued ondansetron 4 mg tablet,disintegrating See Rx Instructions .ROUTE .COMPLEX Qty: 20 3RF Dose Instruction: DISSOLVE ONE TABLET IN MOUTH EVERY SIX HOURS NEEDED FOR NAUSEA AND VOMITING Rx Instructions: DISSOLVE ONE TABLET IN MOUTH EVERY SIX HOURS NEEDED FOR NAUSEA AND VOMITING pantoprazole [Protonix] 40 mg tablet,delayed release (DR/EC) 40 mg PO DAILY Qty: 30 2RF No Action valacyclovir [Valtrex] 500 mg tablet 500 mg PO BID Qty: 10 3RF Follow up/Referrals: Radha Stewart MD [Physician] - 09/10/22 4:00 pm (Check in at 3:45pm. ) Diet/Activity/Treatments Diet: Regular Activity: Nothing in the vagina for 6 weeks Skin/Wound/Dressing Care Report to your healthcare provider any signs of infection, such as:: chills, fever, increased pain and unusual drainage Visit Report/Discharge Packet Instructions: DI for Hemorrhage, Depression, DI for Labor and Delivery, Vaginal Stand Alone Forms: Discharge: Care, Patient Portal/API, Stroke Signs & Symptoms Discharge Data Primary Care Provider: Christiano Howell Discharges patient from system. Discharge Date/Time: 08/01/22 10:50
== END 2022-08-01 10:50 | disposition home or self-care (01) | DRG 805 ==
PROVIDERS: Admitting Provider Obstetrics & Gynecology; PCP Registered Nurse Diabetes Educator; Referring Provider Obstetrics & Gynecology; Visit Provider Obstetrics & Gynecology
DX: O42.013 Preterm premature rupture of membranes, onset of labor within 24 hours of rupture, third trimester (principal); O45.93 Premature separation of placenta, unspecified, third trimester; Z37.0 Single live birth; O98.32 Other infections with a predominantly sexual mode of transmission complicating childbirth; B00.9 Herpesviral infection, unspecified; Z3A.35 35 weeks gestation of pregnancy
CPT/HCPCS: 36415; 59025; 59050; 59200; 59400; 81001; 82731; 85014; 85018; 85025; 86850; 86900; 86901; G0379; J1200; J2270; J2405; J2590; J3010